=== PATIENT | male | born 1940 | race Caucasian/White ===

== ENCOUNTER → 2017-09-14 | Emergency (ER) | payer OTHER ==
[~2017-09-14] VITALS: Ht 177.8 cm; Wt 81.6 kg
[~2017-09-14] MED LIST: CIPRO500 MG PO; COZAAR100 MG; FORTAMET500 MG; NORVASC5 MG; TAMS0.4C
== END | disposition home or self-care (01) ==
LOC: ER 20:01
DX: S91.311A Laceration without foreign body, right foot, initial encounter (principal); W25.XXXA Contact with sharp glass, initial encounter; Y93.01 Activity, walking, marching and hiking; Y92.89 Other specified places as the place of occurrence of the external cause; Y99.8 Other external cause status

== ENCOUNTER 2021-10-27 07:13 | Day surgery (SDC) | payer OTHER ==
[2021-10-27] MEDS ORDERED: POLY119PG PO (15:02)
[2021-10-27] MEDS ORDERED: NEURONTIN600 M1 PO (15:02)
[2021-10-27] MEDS ORDERED: PERCOCET 5-3251 EACH PO (15:02)
== END 2021-10-27 17:20 | disposition home or self-care (01) ==
LOC: CIR.AMB 07:13
PROVIDERS: ATTEND Surgery
DX: K40.90 Unilateral inguinal hernia, without obstruction or gangrene, not specified as recurrent (principal)